=== PATIENT | female | born 1955 | race Caucasian/White ===

== ENCOUNTER → 2018-08-25 | Outpatient (CLI) | payer MEDICARE, OTHER ==
[~2018-08-25] MED LIST: ACET-1966 PO; ALB18R INH; ALPR-1 PO; BACDS PO; CEPH500C24 PO; CHOL200025 PO; CIP500 PO; DOCU-416 PO; FLU10 PO; HYDR-385 PO; IBUP-1618 PO; IBUP600T22 PO; LEVO150T72 PO; LEVO50TA86 PO; LISI-357 PO; LOR5/325 PO; OXYC-373 PO; OXYC-856 PO; PANT40TA65 PO; PARO10TA78 PO; PEN250 PO; PHEN120S16 PO; PRE20 PO; SLEEPING PILL; TRAZ-133 PO; TRAZ100T31 PO; TRI50 FT; TRIA-20 PO; TRIAMTERENE; ZOLP-350 PO; [UNRECOGNIZED DRUG - CODE] PO; [UNRECOGNIZED DRUG - OTHER] OD
--- NOTE | 2018-08-25 13:36 | RADIOLOGY IMAGING REPORT ---
FACILITY: [facility] [place] PATIENT NAME: Viola Mason : 1955 MR: [id number] V: [id number] EXAM DATE: ORDERING PHYSICIAN: SHARON FORBES TECHNOLOGIST: Location: [facility] Patient: Viola Mason : 1955 Visit/Account:[id number] Date of Sevice: 08/25/2018 DEXA Scan Clinical history: Low estrogen. Comparison: None. LUMBAR SPINE: The bone mineral density (BMD) measured from L1-L4 correlates with a Z-score of 1.9 and a T-score of 0.1 which is normal as defined by the World Health Organization. The corresponding risk of fracture in the lumbar spine is not increased compared with a young adult reference population. HIP: Bone mineral density (BMD) measured in the left total hip region correlates with a Z-score of -0.4 an d a T-score of -1.7 which is osteopenia as defined by the World Health Organization. The correspondi ng risk of fracture in the hip is 3-4 times greater compared with a young adult reference population. Bone mineral density (BMD) measured in the left femoral neck region measures 0.770 g/cm2. Impression: 1. Lumbar spine: Normal. 2. Left total hip: Osteopenia. The next DEXA scan of this patient should include the following sites: Lumbar spine L1-L4 and left hi p. FRAX WHO Fracture Risk Assessment Tool link: <http://www.shef.ac.uk/FRAX/tool.jsp?[email or web address]> PLEASE NOTE: 1) The World Health Organization defines low BMD as follows: T-score Normal > -1 Osteopenia < -1 and > -2.5 Osteoporosis < -2.5 without fractures Established osteoporosis < -2.5 with fractures 2) In general, you may wish to consider: Diagnosis Treatment Follow-up DEXA Normal BMD Prevention 2-3 years Osteopenia Prevention/therapy 1-2 years Osteoporosis Therapy Yearly 3) Fracture risk estimated from the T-score is more accurate for vertebral fractures (often spontane ous) than for hip fractures. Report Dictated By: Jyotsna Arciniega MD at 08/25/2018 1:29 PM Report E-Signed By: Jyotsna Arciniega MD at 08/25/2018 1:31 PM WSN:[id number]
== END ==
LOC: RAD 02:19
PROVIDERS: ATTEND Nurse Practitioner Family
DX: M85.88 Other specified disorders of bone density and structure, other site (principal)
CPT/HCPCS: 77080

== ENCOUNTER → 2018-12-31 | Outpatient (CLI) | payer MEDICARE ==
--- NOTE | 2018-12-31 09:56 | EKG ---
FACILITY: [facility] PATIENT NAME: MARINA TAYLOR : [id number] MR: [id number] V: [id number] EXAM DATE: ORDERING PHYSICIAN: QUENTIN MURGUIA TECHNOLOGIST: LV Test Reason : EKG Blood Pressure : / mmHG Vent. Rate : 067 BPM Atrial Rate : 067 BPM P-R Int : 168 ms QRS Dur : 088 ms QT Int : 438 ms P-R-T Axes : 061 -41 031 degrees QTc Int : 462 ms Normal sinus rhythm Left axis deviation Abnormal ECG No previous ECGs available Confirmed by ALYCE CAMACHO ([id number]) on 12/31/2018 5:14:08 PM Referred By: PCP Confirmed By:ALYCE CAMACHO
[2018-12-31 10:01] LABS: PLATELET COUNT, AUTOMATED 299 K/uL (150-450)
--- NOTE | 2018-12-31 12:09 | RADIOLOGY IMAGING REPORT ---
FACILITY: [facility] - [place] PATIENT NAME: Viola Mason : 1955 MR: [id number] V: [id number] EXAM DATE: ORDERING PHYSICIAN: QUENTIN MURGUIA TECHNOLOGIST: Location: [facility] Patient: Viola Mason : 1955 Visit/Account:[id number] Date of Sevice: 12/31/2018 Bilateral carotid artery Doppler duplex ultrasound scan. HISTORY: Syncope. COMPARISON: None. A color flow Doppler duplex ultrasound scan with spectral analysis was performed on the carotid and v ertebral arteries bilaterally. Measurement of carotid stenosis is based on velocity parameters that correlate the residual internal carotid diameter with [place] Symptomatic Carotid Endarterecto my Trial (NASCET)- based stenosis levels. Right carotid peak systolic velocities are as follows: Superior right ICA - 47 cm/sec. Mid right ICA - 47 cm/sec. Proximal right ICA - 51 cm/sec. Right carotid bulb - 53 cm/sec. Superior right CCA - 62 cm/sec. Mid right CCA- 71 cm/sec. Inferior right CCA- 59 cm/sec. Proximal right ECA- 86 cm/sec. Mid right vertebral- 39 cm/sec. Right ICA/CCA ratio- 0.9 ( normal < 1.5 ). Antegrade right vertebral artery flow- YES. Left carotid peak systolic velocities are as follows: Superior left ICA - 84 cm/sec. Mid left ICA- 59 cm/sec. Proximal left ICA- 42 cm/sec. Left carotid bulb- 54 cm/sec. Superior left CCA- 82 cm/sec. Mid left CCA- 82 cm/sec. Inferior left CCA- 89 cm/sec. Proximal left ECA- 72 cm/sec. Mid left vertebral- 47 cm/sec. Left ICA/CCA ratio- 1.0 ( normal < 1.5). Antegrade left vertebral artery flow- YES. Calcified plaque is present in the right carotid bulb and proximal right internal carotid artery resu lting in 30-50% stenosis by visual criteria. Mild intimal thickening is present in the left carotid bulb and proximal left internal carotid artery. IMPRESSION: 30-50% stenosis of the right carotid bulb and proximal right internal carotid artery. Mild left carotid atherosclerosis without evidence of significant focal stenosis. Report Dictated By: Vicente Muñiz MD at 12/31/2018 11:57 AM Report E-Signed By: Vicetne Muñiz MD at 12/31/2018 12:03 PM WSN:[id number]
== END ==
LOC: LAB 09:20
PROVIDERS: ATTEND Surgery
DX: J44.9 Chronic obstructive pulmonary disease, unspecified (principal); J45.909 Unspecified asthma, uncomplicated; R94.31 Abnormal electrocardiogram [ECG] [EKG]
CPT/HCPCS: 36415; 71046; 85025

== ENCOUNTER 2019-01-27 00:30 | Day surgery (SDC) | payer MEDICARE ==
[~2019-01-27] VITALS: Ht 164.5 cm; Wt 66.2 kg
[~2019-01-27 00:30] MED LIST changes: +LISI20TA29 PO; +lisinopril PO
[2019-01-27] MEDS ORDERED: PROPOFOL EMUL(*) 10MG/ML 20 ML 40 ML ONE (08:10)
[2019-01-27] MEDS ORDERED: LIDOCAINE MPF 1% 5 ML VIAL ONE (08:10)
[2019-01-27] MEDS ORDERED: KETAMINE HCL 500 MG/10 ML VIAL ONE (08:15)
[2019-01-27 09:18] VITALS: BP 145/88
[2019-01-27] MEDS ORDERED: LIDOCAINE/SOD BICARB 8.4% SYR ID ONE (09:35)
[2019-01-27] MEDS ORDERED: NORMOSOL R SOLN(*) 1000 ML BAG 1,000 ML IV PRN (09:35)
[2019-01-27 11:32] VITALS: BP 99/66
[2019-01-27] MEDS ORDERED: PANT40TA65 PO (11:48)
--- NOTE | 2019-01-27 11:50 | Short(Outpt) Discharge Summary ---
Discharge Summary Reason for Hosp/Final Diag: (1) Blood in stool Hospital Course & Plan: pt presented for egd and colonoscopy. she tolerated the procedures well. path pending. she will be discharged home when criteria met. Discharge Instructions Home Meds Active Scripts Pantoprazole Sodium (PANTOPRAZOLE SODIUM) 40 Mg Tablet.dr, 1 TAB PO DAILY, #30 CAP 2 Refills Prov:QUENTIN MURGUIA 01/27/19 Ibuprofen (IBUPROFEN) 600 Mg Tablet, 1 TAB PO Q6H, #60 TAB 0 Refills Prov:MARY ALICE HAGER MD 12/28/15 Reported Medications Lisinopril (LISINOPRIL) 20 Mg Tablet, 20 MG PO QDAY, TAB 01/22/19 Albuterol Sulfate (VENTOLIN HFA) 18 Gm Inh, 2 PUFF INH TID, INH 10/20/14 Trazodone Hcl (TRAZODONE HCL) 100 Mg Tablet, 1 TAB PO QHS 10/20/14 Levothyroxine Sodium (LEVOTHYROXINE SODIUM) 50 Mcg Tablet, 1 TAB PO QDAY 10/20/14 Triamterene/Hydrochlorothiazid (TRIAMTERENE-HCTZ 37.5-25 MG TB) 1 Each Tablet, 1 TAB PO QAM 10/20/14 Discontinued Reported Medications [lisinopril] No Conflict Check, 20 MG PO QDAY 01/22/19 Diet: Regular Activity: As Tolerated Special Instructions: we will call you in 10 days with results. QUENTIN MURGUIA Jan 27, 2019 11:50
[2019-01-27 12:03] VITALS: BP 122/72
[2019-01-27 12:30] VITALS: BP 115/72
[2019-01-27 12:46] VITALS: BP 115/75
[2019-01-27 12:47] VITALS: BP 109/67
== END 2019-01-27 13:05 | disposition home or self-care (01) ==
LOC: OR 00:30
PROVIDERS: ATTEND Surgery
DX: D12.5 Benign neoplasm of sigmoid colon (principal); K62.1 Rectal polyp; K29.70 Gastritis, unspecified, without bleeding
CPT/HCPCS: 00813; 43239; 45385; 87077; 88305; 88342; J2001; J2704

== ENCOUNTER 2019-05-16 18:13 | Inpatient (IN) | payer MEDICARE ==
[~2019-05-16] VITALS: Ht 163.8 cm; Wt 65.8 kg
--- NOTE | 2019-05-16 18:16 | ER Report ---
History and Physical Time Seen By MD: 18:12 HPI/ROS CHIEF COMPLAINT: Vomiting 3, shakiness, elevated blood pressure HISTORY OF PRESENT ILLNESS: 64-year-old female presents ambulatory to the ER complaining of abdominal cramps, vomiting 3 this afternoon unable to keep anything down. She is quite tremulous on arrival. She admits she is a daily drinker. A slight she had 2 beers and 2 shooters. She's not had any alcohol today because she's been vomiting. She says she did eat a small sandwich and was able to keep it down late this afternoon. She's been drinking water all day long trying to rehydrate herself. She thinks she is dehydrated. She denies history of alcohol withdrawal. REVIEW OF SYSTEMS: Respiratory: No cough, no dyspnea. Cardiovascular: No chest pain, no palpitations. Gastrointestinal: As above Musculoskeletal: No back pain. Allergies: Coded Allergies: No Known Drug Allergies (Verified , 05/16/19) Home Meds Reported Medications Lisinopril (LISINOPRIL) 20 Mg Tablet, 20 MG PO QDAY, TAB 01/22/19 Levothyroxine Sodium (LEVOTHYROXINE SODIUM) 50 Mcg Tablet, 1 TAB PO QDAY 10/20/14 Discontinued Reported Medications Albuterol Sulfate (VENTOLIN HFA) 18 Gm Inh, 2 PUFF INH TID, INH 10/20/14 Trazodone Hcl (TRAZODONE HCL) 100 Mg Tablet, 1 TAB PO QHS 10/20/14 Triamterene/Hydrochlorothiazid (TRIAMTERENE-HCTZ 37.5-25 MG TB) 1 Each Tablet, 1 TAB PO QAM 10/20/14 Discontinued Scripts Pantoprazole Sodium (PANTOPRAZOLE SODIUM) 40 Mg Tablet.dr, 1 TAB PO DAILY, #30 CAP 2 Refills Prov:QUENTIN MURGUIA 01/27/19 Ibuprofen (IBUPROFEN) 600 Mg Tablet, 1 TAB PO Q6H, #60 TAB 0 Refills Prov:MARY ALICE HAGER MD 12/28/15 Past Medical/Surgical History Past Medical History Cardiovascular: Reports hx of: hypertension Respiratory: Reports hx of: COPD other respiratory history (emphysema) Musculoskeletal: Reports hx of: osteoarthritis other musculoskeletal hx (sciatica, cervicalgia, contusion of knee) Psychiatric: Reports hx of: depression Endocrine: Reports hx of: hypothyroidism Reviewed Nurses Notes: Yes Old Medical Records Reviewed: Yes Hx Smoking: Yes (QUIT SMOKING 6 MONTHS AGO, 1PPD X >45 YRS) Smoking Status: Current: Every Day Smoker Hx Substance Use Disorder: No Hx Alcohol Use: Yes (WEEKLY) Constitutional Vital Sign - Last 24 Hours 05/16/19 05/16/19 05/16/19 18:18 18:30 19:00 Temp 97.6 Pulse 86 88 80 Resp 20 11 7 B/P (MAP) 152/110 153/93 (113) 161/88 (112) Pulse Ox 95 93 91 Physical Exam Vital signs stable, afebrile, pulse ox normal, blood pressure mildly elevated General Appearance: The patient is alert, has no immediate need for airway protection and no current signs of toxicity. Patient with visible tremor and shakiness HEENT: Pupils equal and round no injection. Oropharynx with mild erythema, no exudate Respiratory: Chest is non tender, lungs are clear to auscultation. Cardiac: regular rate and rhythm Gastrointestinal: Abdomen is soft and non tender, no masses, bowel sounds normal. No CVA tenderness Musculoskeletal: Neck: Neck is supple and non tender. Extremities have full range of motion and are non tender. Skin: No rashes or lesions. DIFFERENTIAL DIAGNOSIS: After history and physical exam differential diagnosis was considered for abdominal pain including but not limited to appendicitis, cholecystitis, gastritis and urinary tract infection. Medical Decision Making Data Points Result Diagram: 05/16/19181805/16/191818 Laboratory Hematology Test 05/16/19 18:19 White Blood Count 11.9 k/uL (4.5-11.0) H Red Blood Count 5.03 M/uL (4.17-5.56) Hemoglobin 16.4 g/dL (12.0-16.0) H Hematocrit 48.0 % (34.0-47.0) H Mean Corpuscular Volume 95.3 fL (80.0-96.0) Mean Corpuscular Hemoglobin 32.5 pg (26.0-33.0) Mean Corpuscular Hemoglobin Concent 34.1 g/dL (32.0-36.0) Red Cell Distribution Width 13.3 % (11.5-14.5) Platelet Count 345 K/uL (150-450) Mean Platelet Volume 6.9 fL (7.2-11.1) L Neutrophils (%) (Auto) 73.1 % (39.4-72.5) H Lymphocytes (%) (Auto) 18.4 % (17.6-49.6) Monocytes (%) (Auto) 7.7 % (4.1-12.4) Eosinophils (%) (Auto) 0.3 % (0.4-6.7) L Basophils (%) (Auto) 0.5 % (0.3-1.4) Nucleated RBC Relative Count (auto) 0.0 /100WBC Neutrophils # (Auto) 8.7 K/uL (2.0-7.4) H Lymphocytes # (Auto) 2.2 K/uL (1.3-3.6) Monocytes # (Auto) 0.9 K/uL (0.3-1.0) Eosinophils # (Auto) 0.0 K/uL (0.0-0.5) Basophils # (Auto) 0.1 K/uL (0.0-0.1) Nucleated RBC Absolute Count (auto) 0.00 K/uL Chemistry Test 05/16/19 18:19 Sodium Level 122 mmol/L (137-145) Potassium Level 4.1 mmol/L (3.5-5.0) Chloride Level 82 mmol/L (98-107) Carbon Dioxide Level 22 mmol/L (22-31) Blood Urea Nitrogen 14 mg/dl (7-18) Creatinine 0.90 mg/dl (0.52-1.04) Glomerular Filtration Rate Calc > 60.0 Random Glucose 124 mg/dl (75-110) Lactate 2.0 mmol/L (0.7-2.1) Calcium Level 10.1 mg/dl (8.4-10.2) Total Bilirubin 1.1 mg/dl (0.2-1.3) Aspartate Amino Transf (AST/SGOT) 36 U/L (0-35) Alanine Aminotransferase (ALT/SGPT) 34 U/L (0-56) Alkaline Phosphatase 75 U/L (0-126) Total Protein 8.4 g/dl (6.3-8.2) Albumin 5.2 g/dl (3.5-5.0) Amylase Level 46 U/L (0-110) Lipase 120 U/L (23-300) Coagulation Test 05/16/19 18:19 Prothrombin Time 13.1 seconds (12.0-14.4) Prothromb Time International Ratio 0.99 Activated Partial Thromboplast Time 25 seconds (23-35) Toxicology Test 05/16/19 18:19 05/16/19 19:19 Serum Alcohol < 10 mg/dl Urine Opiates Screen Negative Urine Barbiturates Screen Negative Ur Tricyclic Antidepressants Screen Negative Urine Phencyclidine Screen Negative Urine Amphetamines Screen Negative Urine Benzodiazepines Screen Negative Urine Cocaine Screen Negative Urine Cannabinoids Screen Negative Urinalysis Test 05/16/19 19:19 Urine Color Straw Urine Clarity Clear Urine pH 8.0 pH (4.8-9.5) Urine Specific [place] 1.004 Urine Protein Negative mg/dL (NEGATIVE) Urine Glucose (UA) Negative mg/dL (NEGATIVE) Urine Ketones Negative mg/dL (NEGATIVE) Urine Blood Negative (NEGATIVE) Urine Nitrite Negative (NEGATIVE) Urine Bilirubin Negative (NEGATIVE) Urine Urobilinogen Negative mg/dL (0.2-1.9) Urine Leukocyte Esterase Negative (NEGATIVE) Urine RBC <1 /HPF (0-2/HPF) Urine WBC <1 /HPF (0-5/HPF) Urine Squamous Epithelial Cells Few /LPF (</=FEW) Urine Bacteria Negative /HPF (NONE-FEW) Urine Mucus None /HPF (NONE-FEW) ED Course/Re-evaluation Clinical Indication for ER IV: Hydration, IV Access ED Course Patient was admitted to an examination room. H&P was done. The differential diagnoses was considered. Patient admits to daily alcohol drinking. She's not had any alcohol today because she's been vomiting. Abdominal diagnostic valuation is sent off. IV fluid administration, Zofran are ordered. Patient's diagnostic studies returned with a low sodium. She is very tremulous and agitated. Has the appearance of alcohol withdrawal. Her blood alcohol returns at 0. Patient's treated with IV banana bag. Urinalysis was obtained and unremarkable, urine tox was negative as well. Patient received 2 mg of Ativan down here in the emergency department for her tremor which is improved significantly. 05/16/2019 7:00:09 pm case discussed with Dr. Juan Manuel Gomez hospitalist on- call, who accepts the patient for admission for treatment of hyponatremia Decision to Disposition Date: May 16, 2019 Decision to Disposition Time: 18:47 Depart Departure Latest Vital Signs Vital Signs Date Time Temp Pulse Resp B/P (MAP) Pulse Ox O2 Delivery O2 Flow Rate FiO2 05/16/19 19:00 80 7 161/88 (112) 91 05/16/19 18:18 97.6 Impression: Primary Impression: Hyponatremia Additional Impressions: Tremor Alcohol withdrawal Condition: Improved Disposition: Admitted from ER Referrals: BARBRA HAWKINS (PCP) Problem Qualifiers Additional Impressions: Alcohol withdrawal Complication of substance-induced condition: uncomplicated Qualified Codes: F10.230 - Alcohol dependence with withdrawal, uncomplicated NOY ROMERO DO May 16, 2019 18:16
[2019-05-16] MEDS ORDERED: NS(*) 0.9% 1000 ML BAG 1,000 ML IV ONE (18:26)
[2019-05-16] MEDS ORDERED: ONDANSETRON 4 MG/2 ML VIAL IVP ONE (18:30)
[2019-05-16 18:37] LABS: PLATELET COUNT, AUTOMATED 345 K/uL (150-450)
[2019-05-16 18:42] LABS: INR 0.99
[2019-05-16] MEDS ORDERED: LORazepam 2 MG/ML VIAL IVP ONE ×2 (18:45→19:25)
[2019-05-16] MEDS ORDERED: THIAMINE HCL(*) 200 MG/2 ML IN 100 MG, FOLIC ACID(*) 50 MG/10 ML INJ 1 MG, MULTIVITAMIN... IV ONE (19:07)
[2019-05-16 20:16] VITALS: BP 150/89
[2019-05-16] MEDS ORDERED: DIAZEPAM 10 MG TAB PO PRN (20:45)
[2019-05-16] MEDS ORDERED: INFLUENZA VIRUS VAC 0.5ML SYR IM ONLY ONE (20:45)
--- NOTE | 2019-05-16 20:58 | History & Physical ---
History of Present Illness Chief Complaint Weak and shaky History of Present Illness 64yo female with PMHx significant for HTN, GERD, chronic alcohol use. She reports slow/continual decline in appetite and intake as well as chronic use of "probably too much" alcohol on a daily basis (her son supports this). She declined to quantify exactly how much she has been drinking. She has been feeling increasingly shaky and weaker over past several days. She denied any fevers/chills or vomiting/diarrhea. She is occasionally constipated and uses OTC laxatives. She denied any urinary symptoms. She does report slow weight loss over the past several months (by our record she has lost ~2.5Kg in past 4 months). She was evaluated in the ER and found to be hyponatremic (on diuretic for HTN) and tremulous. She was recommended for admission. History Problems: (1) Ribs, multiple fractures Status: Resolved (2) Hypertension, benign Status: Chronic (3) Chronic obstructive pulmonary disease (COPD) Status: Chronic (4) Hypothyroidism Status: Chronic (5) GERD (gastroesophageal reflux disease) Status: Chronic (6) History of hand surgery Status: Resolved Home Meds Reported Medications Lisinopril (LISINOPRIL) 20 Mg Tablet, 20 MG PO QDAY, TAB 01/22/19 Levothyroxine Sodium (LEVOTHYROXINE SODIUM) 50 Mcg Tablet, 1 TAB PO QDAY 10/20/14 Discontinued Reported Medications Albuterol Sulfate (VENTOLIN HFA) 18 Gm Inh, 2 PUFF INH TID, INH 10/20/14 Trazodone Hcl (TRAZODONE HCL) 100 Mg Tablet, 1 TAB PO QHS 10/20/14 Triamterene/Hydrochlorothiazid (TRIAMTERENE-HCTZ 37.5-25 MG TB) 1 Each Tablet, 1 TAB PO QAM 10/20/14 Discontinued Scripts Pantoprazole Sodium (PANTOPRAZOLE SODIUM) 40 Mg Tablet.dr, 1 TAB PO DAILY, #30 CAP 2 Refills Prov:QUENTIN MURGUIA 01/27/19 Ibuprofen (IBUPROFEN) 600 Mg Tablet, 1 TAB PO Q6H, #60 TAB 0 Refills Prov:MARY ALICE HAGER MD 12/28/15 Allergies: Coded Allergies: No Known Drug Allergies (Verified , 05/16/19) Patient History: No pertinent family history Adopted (Patient was adopted) Other Social/Family Hx 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 She lives with her adult son. Hx Smoking: Yes (QUIT SMOKING 6 MONTHS AGO, 1PPD X >45 YRS) Smoking Status: Current: Every Day Smoker Caffeine Intake: Coffee Caffeine/Cups Per Day: OCC 1-2 CCD, TEA 1 CTD Hx Alcohol Use: Yes (Daily) Alcohol Used: Beer, Liquor Alcohol Withdrawl Symptoms: Tremors Hx Substance Use Disorder: No Review of Systems Constitutional: Weight Loss; No Fever, No Chills Neurological: Weakness Cardiovascular: No Chest Pain, No Palpitations Respiratory: No Shortness of Breath Gastrointestinal: Nausea; No Vomiting, No Diarrhea, No Hematemesis, No Hematochezia, No Melena, No Abdominal Pain Genitourinary: No Dysuria, No Hematuria Exam Vital Signs Vital Signs Date Time Temp Pulse Resp B/P (MAP) Pulse Ox O2 Delivery O2 Flow Rate FiO2 05/16/19 20:16 98.5 75 26 150/89 (109) 95 Nasal Cannula 2.0 General Appearance: Alert, Awake, Other (slightly tremulous/rather flat affect) Neuro: No Gross deficits Eyes: PERRLA ENT: Oropharynx Clear Neck: No Masses Cardiovascular: Regular Rate and Rhythm, No Edema, No JVD Respiratory: Clear to Auscultation Chest: No Tenderness GI: Abd Soft and Non-Tender : No CVA Tenderness Lymph: No Adenopathy Extremities: Warm, Perfused Integumentary: Generalized Fragile Skin Psych: Alert & Oriented X3 Medical Decision Making Data Points Result Diagram: 05/16/19 18105/16/191818 Item Value Date Time Lipase 120 U/L 05/16/191818 Amylase Level 46 U/L 05/16/191818 Albumin 5.2 g/dl H 05/16/191818 Total Protein 8.4 g/dl H 05/16/191818 Alkaline Phosphatase 75 U/L 05/16/191818 Alanine Aminotransferase (ALT/SGPT) 34 U/L 05/16/191818 Aspartate Amino Transf (AST/SGOT) 36 U/L H 05/16/191818 Total Bilirubin 1.1 mg/dl 05/16/191818 Calcium Level 10.1 mg/dl 05/16/191818 Lactate 2.0 mmol/L 05/16/191818 Urine Mucus None /HPF 05/16/191918 Urine Bacteria Negative /HPF 05/16/191918 Urine Squamous Epithelial Cells Few /LPF 05/16/191918 Urine WBC <1 /HPF 05/16/191918 Urine RBC <1 /HPF 05/16/191918 Urine Leukocyte Esterase Negative 05/16/191918 Urine Urobilinogen Negative mg/dL 05/16/191918 Urine Bilirubin Negative 05/16/191918 Urine Nitrite Negative 05/16/191918 Urine Blood Negative 05/16/191918 Urine Ketones Negative mg/dL 05/16/191918 Urine Glucose (UA) Negative mg/dL 05/16/191918 Urine Protein Negative mg/dL 05/16/191918 Urine Specific [employer] 1.004 05/16/191918 Urine pH 8.0 pH 05/16/191918 Urine Clarity Clear 05/16/191918 Urine Color Straw 05/16/191918 Serum Alcohol < 10 mg/dl 05/16/191818 Urine Cannabinoids Screen Negative 05/16/191918 Urine Cocaine Screen Negative 05/16/191918 Urine Benzodiazepines Screen Negative 05/16/191918 Urine Amphetamines Screen Negative 05/16/191918 Urine Phencyclidine Screen Negative 05/16/191918 Urine Barbiturates Screen Negative 05/16/191918 Urine Opiates Screen Negative 05/16/191918 Ur Tricyclic Antidepressants Screen Negative 05/16/191918 Activated Partial Thromboplast Time 25 seconds 05/16/191818 Prothromb Time International Ratio 0.99 05/16/191818 Prothrombin Time 13.1 seconds 05/16/191818 Assessment and Plan Problems: (1) Hyponatremia Status: Acute Assessment & Plan: Most likely due to diuretic use and poor intake. Will give gentle IV fluids and watch labs closely. If persistent, will pursue further workup. (2) Alcohol withdrawal Status: Acute Assessment & Plan: She has a history of termite treater alcohol use. She does profess a desire to stop completely and maintain abstinence. Will place on CIWA protocol and use diazepam as needed. Will give thiamine supplements. Will have substance abuse counselor see her as well. Watch closely. (3) Hypertension, benign Status: Chronic Assessment & Plan: Will monitor BPs and treat as needed. Will stop her diuretic use and would recommend she not use diuretics any further for BP control. (4) Chronic obstructive pulmonary disease (COPD) Status: Chronic Assessment & Plan: She is not currently on any medications. Will give supplemental oxygen as needed. She may need help to stop smoking also. (5) Hypothyroidism Status: Chronic Assessment & Plan: Continue L-thyroxine 50mcg PO daily. Check TSH. Modify if needed. (6) GERD (gastroesophageal reflux disease) Status: Chronic Assessment & Plan: She has been recommended to take PPI therapy, but has not started. Will place on Protonix. Venous Thromboembolism Antithrombotics Is Pt On Any Antithrombotics?: Yes Exam Sepsis Risk: No Definite Risk Problem Qualifiers (1) Alcohol withdrawal: Complication of substance-induced condition: uncomplicated Qualified Codes: F10.230 - Alcohol dependence with withdrawal, uncomplicated ANNITA MICHELLE MD May 16, 2019 20:58
[2019-05-16] MEDS: PANTOPRAZOLE SOD 40 MG TABEC PO SCH (22:14)
[2019-05-16 22:21] VITALS: BP 141/81
[2019-05-16] MEDS ORDERED: IBUP-136 PO (22:42)
[2019-05-16] MEDS ORDERED: MAGN500C11 (22:42)
[2019-05-16] MEDS ORDERED: POTA2TAB29 PO (22:42)
[2019-05-16] MEDS ORDERED: kratom (22:42)
[2019-05-16] MEDS: NS(*) 0.9% 1000 ML BAG 1,000 ML IV PRN (23:59)
[2019-05-17] VITALS (8 sets, daily range): BP systolic 102–143; BP diastolic 61–91
[2019-05-17] MEDS: DIAZEPAM 10 MG TAB PO PRN ×4 (04:57→20:50)
[2019-05-17 05:51] LABS: PLATELET COUNT, AUTOMATED 259 K/uL (150-450)
--- NOTE | 2019-05-17 06:49 | RADIOLOGY IMAGING REPORT ---
FACILITY: [facility] [place] PATIENT NAME: Viola Mason : 1955 MR: [id number] V: [id number] EXAM DATE: ORDERING PHYSICIAN: ANNITA MICHELLE TECHNOLOGIST: Location: [facility] [place] Patient: Viola Mason : 1955 Visit/Account:[id number] Date of Sevice: 05/16/2019 AP CHEST 05/16/2019 8:58 PM. INDICATION: hyponatremia RAD COMPARISON: 12/31/2018 and others. FINDINGS: Chronic hyperexpansion. There is no consolidation. No pleural effusion or pneumothorax. Heart size is normal. Remote right rib fractures. IMPRESSION: Chronic hyperexpansion with no apparent acute abnormality. Report Dictated By: Rony Acevedo MD at 05/17/2019 6:39 AM Report E-Signed By: Rony Acevedo MD at 05/17/2019 6:41 AM WSN:[id number]
[2019-05-17] MEDS: THIAMINE HCL 200 MG/2 ML INJ IVP SCH (08:25)
[2019-05-17] MEDS: PANTOPRAZOLE SOD 40 MG TABEC PO SCH ×2 (08:25→20:41)
[2019-05-17] MEDS: ENOXAPARIN 40 MG/0.4ML SYR SC SCH (08:26)
--- NOTE | 2019-05-17 09:32 | Hospitalist Progress Note ---
Subjective Progress Notes Subjective She was admitted with hyponatremia and alcohol withdraw. She reports much improvement in symptoms. She has required Valium overnight for withdraw. Patient Complains of: Cardiovascular: No: Chest Pain Respiratory: No: Shortness of Breath Physical Exam Vital Signs Date Time Temp Pulse Resp B/P (MAP) Pulse Ox O2 Delivery O2 Flow Rate FiO2 05/17/19 07:12 93 Nasal Cannula 1.0 05/17/19 06:57 97.9 70 16 131/84 (100) Intake and Output 05/17/19 07:03 Intake Total 9815.2 ml Balance 9815.2 ml IV Total 9815.2 ml # Voids 4 General Appearance: Alert, Awake, No Acute Distress, Afebrile Neuro: Other (appears diffusely weak) Cardiovascular: Regular Rate and Rhythm Respiratory: No Respiratory Distress, Clear to Auscultation Psych: Appropriate Mood & Affect Result Diagram: 05/17/19 0506 05/17/19 0506 Assessment and Plan Problems: (1) Hyponatremia Status: Acute Assessment & Plan: Most likely due to diuretic use and poor intake. Improving with gentle IV fluids. Will recheck labs in the morning. If persistent, will pursue further workup. (2) Alcohol withdrawal Status: Acute Assessment & Plan: She has a history of moth exterminator alcohol use. She does profess a desire to stop completely and maintain abstinence. Will place on CIWA protocol and use diazepam as needed. Will give thiamine supplements. Will have substance abuse counselor see her as well. Watch closely. (3) Hypertension, benign Status: Chronic Assessment & Plan: Will monitor BPs and treat as needed. Will stop her diuretic use and would recommend she not use diuretics any further for BP control. (4) Chronic obstructive pulmonary disease (COPD) Status: Chronic Assessment & Plan: She is not currently on any medications. Will give supplemental oxygen as needed. She may need help to stop smoking also. (5) Hypothyroidism Status: Chronic Assessment & Plan: Continue L-thyroxine 50mcg PO daily. Check TSH. Modify if needed. (6) GERD (gastroesophageal reflux disease) Status: Chronic Assessment & Plan: She has been recommended to take PPI therapy, but has not started. Will place on Protonix. Exam Sepsis Risk: No Definite Risk Problem Qualifiers (1) Alcohol withdrawal: Complication of substance-induced condition: uncomplicated Qualified Codes: F10.230 - Alcohol dependence with withdrawal, uncomplicated CASS TERANP May 17, 2019 09:32
[2019-05-17] MEDS: NS(*) 0.9% 1000 ML BAG 1,000 ML IV PRN (19:40)
[2019-05-18 00:26] VITALS: BP 121/74
[2019-05-18 03:34] VITALS: BP 170/89
[2019-05-18 03:41] VITALS: BP 142/86
[2019-05-18 06:06] LABS: PLATELET COUNT, AUTOMATED 241 K/uL (150-450)
[2019-05-18 07:25] VITALS: BP 141/85
--- NOTE | 2019-05-18 08:20 | NUR ---
Physical Therapy Impression PT/OT co eval complete. Pt mildly impulsive with mobility. Cara for bed mobility. SBA for transfers, CGA ambulation x 200' with no AD. PT instruction to asc/desc 10 stairs with railing. Pt completed with no difficulty. Pt declines needs for [facility] services. No further PT visits planned, goals met. Physical Therapy Goals 1: Pt to complete bed mobility with Cara 2: Pt to complete transfers with SBA 3: Pt to ambulate 200' with CGA 4: Pt to asc/desc 10 stairs with railing and CGA Patient's Goals
[2019-05-18 09:31] VITALS: BP 115/65
[2019-05-18] MEDS: PANTOPRAZOLE SOD 40 MG TABEC PO SCH (09:44)
[2019-05-18] MEDS: THIAMINE HCL 200 MG/2 ML INJ IVP SCH (09:44)
[2019-05-18 09:45] VITALS: Ht 163.8 cm; Wt 65.8 kg
[2019-05-18] MEDS: ENOXAPARIN 40 MG/0.4ML SYR SC SCH (09:45)
--- NOTE | 2019-05-18 11:16 | NUR ---
Occupational Therapy Impression Co- evaluation with PT. No OT needs at this time. Pt. to d/c to home when medically appropriate. Pt. refusing OP PT services. Occupational Therapy Goals Patient's Goal
[2019-05-18 11:17] VITALS: BP 120/79
--- NOTE | 2019-05-18 11:40 | Hospitalist Depart ---
Discharge Summary Reason for Hosp/Final Diag: (1) Hyponatremia Status: Acute Hospital Course & Plan: Improved with IV fluids. Na+ level up to 136 on 05/18. (2) Alcohol withdrawal Status: Acute Hospital Course & Plan: She has a history of [employer] continuous churn alcohol use. CIWA have been trending down and she states she feels at her baseline. She states she has 1 beer every night, with 1-2 shots of liquor occasionally. She expressed that she is not interested in speaking with anyone from behavioral health about further education or resources for quitting alcohol use. She states that she already knows what resources are available and she will pursue them when she is discharged. She did express interest in discharging today. (3) Hypertension, benign Status: Chronic Hospital Course & Plan: Will restart her lisinopril with parameters. (4) Chronic obstructive pulmonary disease (COPD) Status: Chronic Hospital Course & Plan: She is not currently on any medications. She is maintaining on room air at this time. She will continue on room air, and I have recommended to her that she stop smoking. (5) Hypothyroidism Status: Chronic Hospital Course & Plan: Continue L-thyroxine 50mcg PO daily. TSH is 2.15. She will continue on her usual dose. (6) GERD (gastroesophageal reflux disease) Status: Chronic Hospital Course & Plan: She has been recommended to take PPI therapy, but has not started. Has been placed on Protonix and will encourage to continue outpatient. Departure Weight (Pounds): 145 Result Diagram: [birth year]/18/1943 05/18/19540 Condition: Improved Discharge: Home, Self Care Discharge Instructions Home Meds Active Scripts Pantoprazole Sodium (PANTOPRAZOLE SODIUM) 40 Mg Tablet., 40 MG PO BID, #30 TAB Prov:CHRIS CASIANO 05/18/19 Reported Medications [kratom] Unknown Strength No Conflict Check 05/16/19 Potassium Gluconate (POTASSIUM GLUCONATE) 500 Mg Tablet, 550 MG PO 05/16/19 Ibuprofen (IBUPROFEN) 200 Mg Capsule, 1 CAP PO PRN PRN for PAIN, CAPSULE 05/16/19 Magnesium Oxide (Magnesium Oxide) 500 Mg Capsule, QDAY 05/16/19 Lisinopril (LISINOPRIL) 20 Mg Tablet, 20 MG PO QDAY, TAB 01/22/19 Levothyroxine Sodium (LEVOTHYROXINE SODIUM) 50 Mcg Tablet, 1 TAB PO QDAY 10/20/14 Discontinued Reported Medications Albuterol Sulfate (VENTOLIN HFA) 18 Gm Inh, 2 PUFF INH TID, INH 10/20/14 Trazodone Hcl (TRAZODONE HCL) 100 Mg Tablet, 1 TAB PO QHS 10/20/14 Triamterene/Hydrochlorothiazid (TRIAMTERENE-HCTZ 37.5-25 MG TB) 1 Each Tablet, 1 TAB PO QAM 10/20/14 Discontinued Scripts Pantoprazole Sodium (PANTOPRAZOLE SODIUM) 40 Mg Tablet.dr, 1 TAB PO DAILY, #30 CAP 2 Refills Prov:QUENTIN MURGUIA 01/27/19 Ibuprofen (IBUPROFEN) 600 Mg Tablet, 1 TAB PO Q6H, #60 TAB 0 Refills Prov:MARY ALICE HAGER MD 12/28/15 Diet: Regular Activity: As Tolerated Special Instructions: Follow up with your PCP in 1-2 weeks for review of your hospital admission and possible medication changes. Please stop any alchohol consumption. Please follow up with an outside resource for alcohol abstinence, consider [facility] or other community resource. Stop smoking. Copies to: [facility]WKINS ; Venous Thromboembolism Antithrombotics Is Pt On Any Antithrombotics?: Yes Problem Qualifiers (1) Alcohol withdrawal: Complication of substance-induced condition: uncomplicated Qualified Codes: F10.230 - Alcohol dependence with withdrawal, uncomplicated CHRIS CASIANO May 18, 2019 11:40
[2019-05-18] MEDS ORDERED: PANT40TA65 PO (11:43)
== END 2019-05-18 13:50 | disposition home or self-care (01) | DRG 641 ==
LOC: ER 18:29 → MED 20:00
PROVIDERS: ADMIT Internal Medicine; ATTEND Internal Medicine
DX: E87.1 Hypo-osmolality and hyponatremia (principal); F10.230 Alcohol dependence with withdrawal, uncomplicated; I10 Essential (primary) hypertension; K21.9 Gastro-esophageal reflux disease without esophagitis; Y90.0 Blood alcohol level of less than 20 mg/100 ml; F32.9 Major depressive disorder, single episode, unspecified; J44.9 Chronic obstructive pulmonary disease, unspecified; E03.9 Hypothyroidism, unspecified; Z87.891 Personal history of nicotine dependence
CPT/HCPCS: 36415; 71045; 80305; 80320; 81001; 82040; 82150; 82247; 82310; 82374; 82435; 82565; 82947; 83605; 83690; 83735; 84075; 84132; 84155; 84295; 84443; 84450; 84460; 84520; 85025; 85610; 85730; 96361; 96365; 96375; 96376; 97161; 97165; 99285; J1650; J2060; J2405; J3411; J3475; J7030